=== PATIENT | male | born 1940 | race Caucasian/White ===

== ENCOUNTER 2018-05-25 18:43 | Emergency (ER) | payer MEDICAID ==
[~2018-05-25] VITALS: Ht 144.8 cm; Wt 77.1 kg
[2018-05-25 18:47] VITALS: Ht 144.8 cm; Wt 77.1 kg
[2018-05-25 21:10] VITALS: BP 135/91
== END 2018-05-25 21:10 | disposition home or self-care (01) ==
LOC: ED 18:43
DX: M54.30 Sciatica, unspecified side (principal); M19.90 Unspecified osteoarthritis, unspecified site; E11.9 Type 2 diabetes mellitus without complications; E78.00 Pure hypercholesterolemia, unspecified
CPT/HCPCS: J1885

== ENCOUNTER 2019-09-02 12:47 | Emergency (ER) | payer OTHER ==
[~2019-09-02] VITALS: Ht 152.4 cm; Wt 73.5 kg
[2019-09-02 13:00] VITALS: Ht 152.4 cm; Wt 73.5 kg
[2019-09-02 13:18] LABS: BASOPHIL % 0.2 % (0-2); PLATELET COUNT 317 x10^3mcL (130-400); RED CELL DISTRIBUTION WIDTH 13.8 % (11.5-14.5)
[2019-09-02 13:31] LABS: CALCIUM 9.1 mg/dL (8.5-10.1); CARBON DIOXIDE 25.5 mmol/L (21-32); CHLORIDE SERUM 101 mmol/L (98-107); CREATININE SERUM 1.5 mg/dL (0.7-1.3); GLUCOSE SERUM 198 mg/dL (74-106); POTASSIUM SERUM 5.4 mmol/L (3.5-5.1); SODIUM SERUM 136 mmol/L (136-145)
[2019-09-02 13:37] LABS: ALBUMIN 4.1 g/dL (3.4-5.0); ALKALINE PHOSPHATASE 55 U/L (46-116); ALT/SGPT 44 U/L (16-63); AST/SGOT 26 U/L (15-37); BILIRUBIN TOTAL 0.4 mg/dL (0.20-1.00); LIPASE 686 IU/L (73-393); TOTAL PROTEIN, SERUM 8.1 g/dL (6.4-8.2)
[2019-09-02 14:33] LABS: UA SPECIFIC GRAVITY >=1.030 (1.005-1.035); microscopic required? YES; urine erythrocyte 3+ (NEGATIVE)
[2019-09-02 16:16] VITALS: BP 121/82
== END 2019-09-02 16:16 | disposition home or self-care (01) ==
LOC: ED 12:47
PROVIDERS: Emergency Medicine
DX: R31.9 Hematuria, unspecified (principal); E11.9 Type 2 diabetes mellitus without complications; E78.00 Pure hypercholesterolemia, unspecified
CPT/HCPCS: 36415